=== PATIENT | female | born 1935 | race American Indian/Alaskan Native ===

== ENCOUNTER 2018-11-07 08:03 | Day surgery (SDC) | payer MEDICARE ==
[2016-09-26 09:00] VITALS: BMI 31.6
[2018-11-07 08:33] VITALS: O2SAT 100
[2018-11-07] MEDS ORDERED: Midazolam 2 MG/2 ML VIAL ONE (09:09)
[2018-11-07] MEDS ORDERED: Propofol 10 mg/ml Inj (20 ML) ONE (09:09)
[2018-11-07] MEDS ORDERED: Sodium Chloride 0.9% 1,000 ML IV SCH (09:30)
[2018-11-07 10:24] VITALS: BP 176/83; PULSE 64; RESP 18; TEMP 98.4
== END 2018-11-07 11:17 | disposition home or self-care (01) ==
LOC: ENDO 08:03
PROVIDERS: ATTEND Specialist
DX: K29.70 Gastritis, unspecified, without bleeding (principal); K44.9 Diaphragmatic hernia without obstruction or gangrene
CPT/HCPCS: 43239; 82948; 88305; 88342; J2001; J2250; J2704; J7030; J7040